=== PATIENT | female | born 1985 | race Caucasian/White ===

== ENCOUNTER 2022-03-02 10:25 | Inpatient (IN) | payer SELFPAY ==
[2022-03-02] VITALS (21 sets, daily range): BP systolic 95–116; BP diastolic 53–74; PULSE 70–86; TEMP 36.4–37.2; O2SAT 98–99; BMI 28.4
[2022-03-02] MEDS: Lactated Ringers 1,000 ML 50 ML IV (11:17)
[2022-03-02 11:21] LABS: Mucous, Urine 0 SEEN /hpf (<or=2+); Red Blood Cells-Urine 0 SEEN /hpf (0-5); White Blood Cells 0 SEEN /hpf (0-5)
[2022-03-02] MEDS: Oxytocin 30 units/NS 500 ml 30 UNITS/500 ML IV.SOLN IV (11:30)
[2022-03-02 11:31] LABS: Absolute Lymphocyte Count 1.55 X10^3/uL (0.83-4.51); Absolute Neutrophil Count 8.1 X10^3/uL (2.0-7.7); Basophil# 0.04 X10^3/uL; Basophil% 0.4 % (0-1); Eosinophil# 0.04 X10^3/uL; Eosinophils% 0.4 % (0-5); Hematocrit 34.2 % (37-47); Hemoglobin 11.8 g/dL (12.0-15.0); Lymphocyte # 1.55 X10^3/ul (0.83-4.51); Mean Corp Hgb Conc 34.5 g/dL (32-36); Mean Corpuscular Hgb 30.4 pg (27.0-32.0); Mean Corpuscular Volume 88.1 fL (81-99); Mean Platelet Vol. 9.3 fl (6.2-12.0); Monocyte# 0.54 X10^3/uL; Monocyte% 5.2 % (0-10); NRBC Flagged by Analyzer 0 % (0-5); Neutrophil # 8.07 X10^3/uL (2.7-7.7); Platelet Count 255 K/mm3 (150-450); RBC Distribution Width SD 41.5 fl (35.1-43.9); Red Blood Count 3.88 M/mm3 (4.2-5.4); White Blood Count 10.3 K/mm3 (4.4-11.0)
[2022-03-02 11:35] LABS: Color, Urine Yellow (Yellow); Glucose, Dipstick Normal (Normal); Ketone-Dipstick Negative (Negative); Leukocyte Esterase-Dipstick Negative /ul (Negative); Nitrite-Dipstick Negative (Negative); Occult Blood-Urine Negative /ul (Negative); Protein-Dipstick Negative (Negative); Urine Bilirubin Dipstick Negative (Negative); Urine Clarity Sl. Cloudy (Clear); Urine Urobilinogen Normal (Normal)
[2022-03-02 11:37] LABS: Amphetamine Urine VISTA NEGATIVE (<1000 ng/mL); Barbiturate Urine VISTA NEGATIVE (< 200 ng/mL); Benzodiazepine Urine VISTA NEGATIVE (< 200 ng/mL); Cocaine Urine VISTA NEGATIVE (< 300 ng/mL); Ecstacy Urine VISTA NEGATIVE (< 500 ng/mL); Methadone Urine VISTA NEGATIVE (< 300 ng/mL); PCP Urine VISTA NEGATIVE (< 25 ng/mL); THC Urine VISTA NEGATIVE (< 50 ng/mL); Vista UDS pH Range 7
[2022-03-02 11:45] LABS: Bacteria 1+ /hpf (None Seen); Squamous Epithelial Cells - UA 0-5 SEEN /hpf (5-10)
[2022-03-02 12:13] LABS: Rubella IgG Reactive (Nonreactive); Syphilis Antibodies Non-reactive
[2022-03-02 12:41] LABS: Group B Strep DNA By PCR Negative (Negative); Internal Control PASS; Probe Check PASS; Specimen Processing Control PASS
[2022-03-02 12:54] LABS: HIV - WCH Non-Reactive (Nonreactive); Hepatitis B Surface Antigen Non-Reactive (Nonreactive); Hepatitis C Antibody Non-Reactive (Nonreactive)
[2022-03-02 13:01] LABS: Chlamydia Trachomatis by PCR Negative (Negative); Neisserai gonorrhoeae by PCR Negative (Negative); Probe Check PASS; Sample Adequacy Control PASS; Specimen Processing Control PASS
--- NOTE | 2022-03-02 17:17 | PCM.HP.OB ---
HPI - General General Date of Admission: 03/02/22 HPI Narrative ADA YELENA, is a 36 y/o @ 39 weeks 4 days gestation who presents to l&d with rupture of membranes without contractions. She is a patient of MsGely Blackburn (branch office administrator) who was transverse last week. She was examined and noted to be vertex, however Amandeep was concerned about possible cord entanglement due to change in position and requested/recommended a hospital . Maternal Data Information STEPHON Calculator Estimated Delivery Date Method Current WG Current Estimate 03/05/22 LMP (Certain) 39w 4d PFSH PFSH Medical History Depression Thyroid disorder Home Medications sertraline [Zoloft] 25 mg PO DAILY 03/02/22 [History Last Taken 03/02/22 07:00] thyroid (pork) [[place] Thyroid] 60 mg PO DAILY 03/02/22 [History Last Taken 03/02/22 07:00] Allergy/AdvReac Type Severity Reaction Status Date / Time No Known Allergies Allergy Unverified 02/15/22 10:25 Family History (Updated 02/15/22 @ 10:27 by Lindsey Granda) Mother Leukemia Sister Lymphoma Social History (Updated 02/15/22 @ 10:27 by Lindsey Granda) Smoking Status: Never smoker alcohol intake: never substance use type: does not use caffeine: No seatbelt use: always do you feel safe at home: Yes additional social history: patient is a [facility] [place] History 6 Elective abortions Hx Para 3 Spontaneous abortions 2 Hx # Term Pregnancies 3 Ectopic pregnancies 0 Hx # Pregnancies 3 Multiple births 0 # of living children 2 Past Pregnancies Del. Date Name GA/Weeks Outcome Route Bth Weight Gen Labor Lgth Anesthesia Del Locatn Provider FOB Unknown 2011 Alessandro 39 live - full term 8lbs 3oz Male 8 none home tyler sanz Unknown 2013 Samson 40 live - full term 9lbs 6oz Male 13.5 none home amandeep sanz Unknown 2015 Tonya 40 live - full term 8lbs Female 3 none Home Amandeep Sanz Delivery Date: no complications to note Lindsey Granda Delivery Date: no complications to note Lindsey Granda Delivery Date: No complications to note Lindsey Granda Visit Details Expected Delivery Route/Plan home planned with Amandeep Blackburn OB Flowsheet Initial Weight: Not Recorded Date <del>?</del> EGA Weight BP Urine Prot <del>?</del> Glucose FHR FuHt Pres Dilation <del>?</del> Effaced St Visit Note 02/15/22 <del>?</del> 37w 3d 154 lb <del>?</del> 145 <del>?</del> Limited bedside ultrasound performed and fetus confirmed to be vertex but high in pelvis with fluid underneath. Some cord seen to the side but no clear nuchal cord evaluated. Unrestricted reassuring movement seen. Grossly normal amniotic fluid level. Fundal height measurements consistent with dating. 03/02/22 <del>?</del> 39w 4d 160 lb 9.6 oz 104/68 104/68 113/74 113/59 108/65 116/69 108/63 109/60 108/59 Negative mg/dl (Negative) <del>?</del> <del>?</del> ROS Constitutional Constitutional: Denies change in weight, fatigue, fever(s), headache(s), poor appetite or weakness Eyes Eyes: Denies blurry vision, change in vision, seeing flashes or spots in vision ENT HEENT: Denies dizziness, headache(s), loss taste/smell or sore throat Cardiovascular Cardiovascular: Denies chest pain, dizziness, dyspnea, irregular heart rhythm, leg edema, palpitations, rapid heart rate or vomiting Respiratory/Chest Respiratory/Chest: Denies chest tightness, cough, dyspnea or breast pain Gastrointestinal Gastrointestinal: Denies abdominal pain, anorexia, constipation, cramping, diarrhea, hemorrhoids, vomiting or weight changes Genitourinary Genitourinary: Denies dysuria, flank pain, genital lesions, genital pain, urinary frequency or urinary urgency Musculoskeletal Musculoskeletal: Denies back pain, difficulty walking, joint pain, limited range of motion, muscle cramps or numbness Integumentary Integumentary: Denies lesions or unusual bruising Neurologic Neurologic: Denies abnormal movements, abnormal speech, dizziness, numbness, seizure-like activity or syncope Psychiatric Psychiatric: Denies anxiety, behavioral changes, change in appetite, change in libido, cognitive impairment, confusion, depression, difficulty concentrating, hallucinations or suicidal thoughts Endocrine Endocrinology: Denies excessive sweating, polydipsia or polyuria Hematologic/Lymphatic Hematologic/Lymphatic: Denies easy bleeding, easy bruising or lymphadenopathy Allergic/Immunologic Allergic/Immunologic: Denies itchy eyes, lip swelling, seasonal rhinorrhea, rhinitis, throat swelling, tongue swelling, eczemia, wheezing or asthma Vital Signs Vital Signs Vital Signs: 03/02/22 10:45 03/02/22 10:51 03/02/22 11:33 Temperature 98.6 F 97.6 F L Temperature Source Temporal Temporal Pulse Rate 80 80 74 Blood Pressure 104/68 104/68 113/74 BP Systolic 104 104 113 BP Diastolic 68 68 74 Pulse Ox 99 03/02/22 12:26 03/02/22 13:35 03/02/22 13:36 Temperature 98.2 F 97.8 F Temperature Source Temporal Temporal Pulse Rate 79 74 Blood Pressure 113/59 L 108/65 BP Systolic 113 108 BP Diastolic 59 65 Pulse Ox 99 98 98 03/02/22 14:34 03/02/22 15:22 03/02/22 16:23 Temperature 98.9 F 98.0 F 98.1 F Temperature Source Temporal Temporal Pulse Rate 73 75 86 Blood Pressure 116/69 108/63 109/60 BP Systolic 116 108 109 BP Diastolic 69 63 60 Pulse Ox Weight Weight: 160 lb 9.6 oz Body Mass Index (BMI) 28.4 Physical Exam Const alert, oriented x3, no apparent distress and healthy appearing General Appearance: cooperative; Negative for anxious HEENT normocephalic Face and Sinus: normal facial exam Eyes EOMs intact bilaterally and no scleral icterus General Eye: normal appearance of both eyes Neck full ROM and supple Lymph Lymphatic: no lymphadenopathy noted Chest Chest: abnormal inspection of the chest Resp normal respiratory effort Effort and Inspection: able to speak in complete sentences Cardio regular rate GI soft to palpation and non-tender Inspection: gravid Palpation: soft; Negative for tender external exam normal Amniotic Fluid: ROM+plus Back/Spine no CVA tenderness Extremity normal to inspection, full ROM and no clubbing, cyanosis or edema General Extremity: Negative for calf tenderness or edema Skin Lesions: no lesions Rashes: no rashes Psych mental status grossly normal Labs Labs Labs: Blood Type A NEGATIVE Antibody Screen NEGATIVE Hct 34.2 % (37-47) L Hgb 11.8 g/dL (12.0-15.0) L Syphilis Total Ab Non-reactive Rubella IgG Antibody Reactive (Nonreactive) Hep Bs Antigen Non-Reactive (Nonreactive) HIV 1&2 Antibody Non-Reactive (Nonreactive) Group B Strep DNA Negative (Negative) Assessment & Plan (1) Premature rupture of membranes (PROM) affecting sixth : PLAN: Patient presents IOL, plan management for with pitocin/AROM. Pain management: none requested. GBS negative. Management of any complications: none I have reviewed the [facility] and made any clinically relevant updates.
[2022-03-02] MEDS: Oxytocin 30 units/NS 500 ml 30 UNITS/500 ML IV.SOLN 334 UNITS IV (18:44)
--- NOTE | 2022-03-02 20:20 | HP.PCM.NUR_ITS ---
Subjective Subjective: 3485gramds for this 39.4week AGA Bg born via VD after sent in by core laying machine operator Lisandra Blackburn secondary to concern for cord entanglement and need for pitocin. 36yo ->4 Aneg ( baby A+/C-), HepBsag neg, RI, RPR NR, GBS neg, HIV NR, UDS neg. Labs drawn upon admission. Maternal history of hypothyroidism on [place] thyroid and zoloft. Parents have a 9yo,7yo, 5yo, and MOB breastfed all three and none of them had jaundice in the period. Baby has breastfed well thus far. PCP: Objective Objective Data: 03/02/22 10:45 03/02/22 10:51 03/02/22 11:33 Temperature 98.6 F 97.6 F L Temperature Source Temporal Temporal Pulse Rate 80 80 74 Blood Pressure 104/68 104/68 113/74 BP Systolic 104 104 113 BP Diastolic 68 68 74 Pulse Ox 99 03/02/22 12:26 03/02/22 13:35 03/02/22 13:36 Temperature 98.2 F 97.8 F Temperature Source Temporal Temporal Pulse Rate 79 74 Blood Pressure 113/59 L 108/65 BP Systolic 113 108 BP Diastolic 59 65 Pulse Ox 99 98 98 03/02/22 14:34 03/02/22 15:22 03/02/22 16:23 Temperature 98.9 F 98.0 F 98.1 F Temperature Source Temporal Temporal Pulse Rate 73 75 86 Blood Pressure 116/69 108/63 109/60 BP Systolic 116 108 109 BP Diastolic 69 63 60 Pulse Ox 03/02/22 17:16 03/02/22 18:03 03/02/22 18:47 Temperature 98.4 F Temperature Source Temporal Pulse Rate 86 83 86 Blood Pressure 108/59 L 97/56 L BP Systolic 108 97 BP Diastolic 59 56 Pulse Ox 03/02/22 19:02 03/02/22 19:17 03/02/22 19:31 Temperature 98.0 F 98.1 F Temperature Source Temporal Temporal Pulse Rate 81 72 Blood Pressure 113/59 L 95/59 L BP Systolic 113 95 BP Diastolic 59 59 Pulse Ox 03/02/22 19:32 03/02/22 19:47 03/02/22 20:02 Temperature Temperature Source Pulse Rate 80 83 70 Blood Pressure 104/66 111/69 103/64 BP Systolic 104 111 103 BP Diastolic 66 69 64 Pulse Ox Weight: 72.847 kg Vital Signs Temp Pulse BP Pulse Ox 03/02/22 20:02 70 103/64 03/02/22 19:47 83 111/69 03/02/22 19:32 80 104/66 03/02/22 19:31 98.1 F 03/02/22 19:17 72 95/59 L 03/02/22 19:02 98.0 F 81 113/59 L 03/02/22 18:47 86 03/02/22 18:03 83 97/56 L 03/02/22 17:16 98.4 F 86 108/59 L 03/02/22 16:23 98.1 F 86 109/60 03/02/22 15:22 98.0 F 75 108/63 03/02/22 14:34 98.9 F 73 116/69 03/02/22 13:36 74 108/65 98 03/02/22 13:35 97.8 F 98 03/02/22 12:26 98.2 F 79 113/59 L 99 03/02/22 11:33 97.6 F L 74 113/74 03/02/22 10:51 80 104/68 03/02/22 10:45 98.6 F 80 104/68 99 Lab tests last 48H 03/02/22 03/02/22 03/02/22 11:00 11:00 11:00 WBC 10.3 RBC 3.88 L Hgb 11.8 L Hct 34.2 L MCV 88.1 MCH 30.4 MCHC 34.5 RDW Std Deviation 41.5 RDW Coeff of Levi 13.0 Plt Count 255 MPV 9.3 Immature Gran % (Auto) 1.000 H Neut % (Auto) 78.0 H Lymph % (Auto) 15.0 L [place] % (Auto) 5.2 Eos % (Auto) 0.4 Baso % (Auto) 0.4 Absolute Neuts (auto) 8.1 H Absolute Lymphs (auto) 1.55 Nucleated RBC % 0 Urine Color Yellow Urine Clarity Sl. Cloudy Urine pH 8.0 Ur Specific [place] 1.010 Urine Protein Negative Urine Glucose (UA) Normal Urine Ketones Negative Urine Occult Blood Negative Urine Nitrite Negative Urine Bilirubin Negative Urine Urobilinogen Normal Ur Leukocyte Esterase Negative Urine RBC 0 SEEN Urine WBC 0 SEEN Ur Squamous Epith Cells 0-5 SEEN Urine Bacteria 1+ Urine Mucus 0 SEEN Urine Opiates Screen Urine Methadone Screen Ur Barbiturates Screen Ur Phencyclidine Scrn Ur Amphetamines Screen MDMA (Ecstasy) Screen U Benzodiazepines Scrn Urine Cocaine Screen U Cannabinoids Screen Ur Drug Screen Comment Syphilis Total Ab Non-reactive Chlam trachomat DNA PCR Hep Bs Antigen Hepatitis C Antibody HIV 1&2 Antibody N.gonorrhoeae DNA (PCR) Rubella IgG Antibody Reactive Group B Strep DNA Specimen Comment Blood Type Antibody Screen 03/02/22 03/02/22 03/02/22 11:00 11:00 11:00 WBC RBC Hgb Hct MCV MCH MCHC RDW Std Deviation RDW Coeff of Levi Plt Count MPV Immature Gran % (Auto) Neut % (Auto) Lymph % (Auto) [place] % (Auto) Eos % (Auto) Baso % (Auto) Absolute Neuts (auto) Absolute Lymphs (auto) Nucleated RBC % Urine Color Urine Clarity Urine pH Ur Specific [place] Urine Protein Urine Glucose (UA) Urine Ketones Urine Occult Blood Urine Nitrite Urine Bilirubin Urine Urobilinogen Ur Leukocyte Esterase Urine RBC Urine WBC Ur Squamous Epith Cells Urine Bacteria Urine Mucus Urine Opiates Screen NEGATIVE Urine Methadone Screen NEGATIVE Ur Barbiturates Screen NEGATIVE Ur Phencyclidine Scrn NEGATIVE Ur Amphetamines Screen NEGATIVE MDMA (Ecstasy) Screen NEGATIVE U Benzodiazepines Scrn NEGATIVE Urine Cocaine Screen NEGATIVE U Cannabinoids Screen NEGATIVE Ur Drug Screen Comment Syphilis Total Ab Chlam trachomat DNA PCR Hep Bs Antigen Hepatitis C Antibody HIV 1&2 Antibody N.gonorrhoeae DNA (PCR) Rubella IgG Antibody Group B Strep DNA Negative Specimen Comment Not Reportable Blood Type A NEGATIVE Antibody Screen NEGATIVE 03/02/22 03/02/22 11:00 11:00 WBC RBC Hgb Hct MCV MCH MCHC RDW Std Deviation RDW Coeff of Levi Plt Count MPV Immature Gran % (Auto) Neut % (Auto) Lymph % (Auto) [place] % (Auto) Eos % (Auto) Baso % (Auto) Absolute Neuts (auto) Absolute Lymphs (auto) Nucleated RBC % Urine Color Urine Clarity Urine pH Ur Specific [place] Urine Protein Urine Glucose (UA) Urine Ketones Urine Occult Blood Urine Nitrite Urine Bilirubin Urine Urobilinogen Ur Leukocyte Esterase Urine RBC Urine WBC Ur Squamous Epith Cells Urine Bacteria Urine Mucus Urine Opiates Screen Urine Methadone Screen Ur Barbiturates Screen Ur Phencyclidine Scrn Ur Amphetamines Screen MDMA (Ecstasy) Screen U Benzodiazepines Scrn Urine Cocaine Screen U Cannabinoids Screen Ur Drug Screen Comment Syphilis Total Ab Chlam trachomat DNA PCR Negative Hep Bs Antigen Non-Reactive Hepatitis C Antibody Non-Reactive HIV 1&2 Antibody Non-Reactive N.gonorrhoeae DNA (PCR) Negative Rubella IgG Antibody Group B Strep DNA Specimen Comment Blood Type Antibody Screen Micro - Preliminary and Final Results 03/02/22 11:00 SARS-CoV-2 Antigen (Rapid) - Final Nasal Secretion Vital Signs Vital Signs Vital Signs: 03/02/22 10:45 03/02/22 10:51 03/02/22 11:33 Temperature 98.6 F 97.6 F L Temperature Source Temporal Temporal Pulse Rate 80 80 74 Blood Pressure 104/68 104/68 113/74 BP Systolic 104 104 113 BP Diastolic 68 68 74 Pulse Ox 99 03/02/22 12:26 03/02/22 13:35 03/02/22 13:36 Temperature 98.2 F 97.8 F Temperature Source Temporal Temporal Pulse Rate 79 74 Blood Pressure 113/59 L 108/65 BP Systolic 113 108 BP Diastolic 59 65 Pulse Ox 99 98 98 03/02/22 14:34 03/02/22 15:22 03/02/22 16:23 Temperature 98.9 F 98.0 F 98.1 F Temperature Source Temporal Temporal Pulse Rate 73 75 86 Blood Pressure 116/69 108/63 109/60 BP Systolic 116 108 109 BP Diastolic 69 63 60 Pulse Ox 03/02/22 17:16 03/02/22 18:03 03/02/22 18:47 Temperature 98.4 F Temperature Source Temporal Pulse Rate 86 83 86 Blood Pressure 108/59 L 97/56 L BP Systolic 108 97 BP Diastolic 59 56 Pulse Ox 03/02/22 19:02 03/02/22 19:17 03/02/22 19:31 Temperature 98.0 F 98.1 F Temperature Source Temporal Temporal Pulse Rate 81 72 Blood Pressure 113/59 L 95/59 L BP Systolic 113 95 BP Diastolic 59 59 Pulse Ox 03/02/22 19:32 03/02/22 19:47 03/02/22 20:02 Temperature Temperature Source Pulse Rate 80 83 70 Blood Pressure 104/66 111/69 103/64 BP Systolic 104 111 103 BP Diastolic 66 69 64 Pulse Ox Weight Weight: 72.847 kg Body Mass Index (BMI) 28.4 General Weight: 72.847 kg
--- NOTE | 2022-03-02 22:15 | OP.PCM_ITS ---
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 The head was delivered atraumatically. The anterior and posterior shoulders delivered without complication followed by the rest of the infant and the infant was placed on the maternal abdomen. Delayed cord clamping was employed for approximately 60 seconds. Cord was clamped and cut and gentle traction was applied to the cord and the placenta delivered spontaneously immediately following it was noted to be intact with three-vessel cord. The pe rineum and vagina were inspected and noted to have no laceration. EBL was 100 cc. Patient and infant tolerated delivery well. Presentation: Vertex Amniotic Membrane Rupture Type: Spontaneous Amniotic Fluid Description: Clear Placenta Disposition: [facility] Cord Vessel Description: 3 Vessels Cord Entanglement: None A Gender: Female (1 minute): 8 (5 minute): 9 Delayed Cord Clamping: Yes Multi Select Codes Urinary/Genital Urinary/Genital CPT Codes: 98783 Vaginal Delivery+ PP Care([facility])
--- NOTE | 2022-03-02 22:17 | PCM.DC ---
Discharge Instructions Diet Discharge Diet: No restrictions Activity Discharge Activity: Return to Normal Activity, May Not Drive (while taking narcotic pain medications.) and May Shower May resume sexual activity in: 4-6 weeks Dressing / Incision Call your doctor if your incision/area has: Continuous Slow Oozing, Sudden Increased Bleeding, Increased Pain/ Swelling, Increased Redness and Foul Smelling Discharge Follow Up Care Please Follow Up With: Merari Edmonds, When: Call [phone] to make an appointment with your doctor in 6 weeks. If you had elevated blood pressure or 4th degree laceration, you will need to be seen in 2 weeks. Test Results: Test results from this visit will be discussed in further detail at your follow-up appointment, if applicable. Discharge Plan Admission Admit Date/Time: 03/02/22 10:25 Primary Reason for Your Visit: vaginal delivery Attending Provider: Merari Edmonds Discharge Orders/Prescriptions Prescriptions: No Action sertraline [Zoloft] 25 mg Tablet 25 mg PO DAILY RF: 0 thyroid (pork) [[place] Thyroid] 60 mg Tablet 60 mg PO DAILY RF: 0 Disposition Disposition (needs filled in before D/C Order can be placed): Home, Self Care
[2022-03-03] VITALS (11 sets, daily range): BP systolic 88–108; BP diastolic 52–73; PULSE 67–94; RESP 15–18; TEMP 36.4–37.1; O2SAT 85–97
--- NOTE | 2022-03-03 08:34 | PN.OBGYN_ITS ---
Subjective Subjective Patient doing well without complaints. Tolerating PO. Ambulating and voiding without difficulty. Feeding well. Denies chest pain, shortness of breath, calf pain/swelling, fevers, chills, lightheadedness. Objective Data Objective Data Vital Signs: Vital Signs Temp Pulse Resp BP Pulse Ox 97.5 F L 86 16 107/73 97 03/03/22 07:30 03/03/22 07:30 03/03/22 07:30 03/03/22 07:30 03/03/22 07:30 Oxygen Delivery Method Room Air Weight: 160 lb 9.6 oz Body Mass Index (BMI) 28.4 Intake & Output: Intake and Output for Last 24 Hours 03/01/22 03/02/22 03/03/22 23:59 23:59 23:59 Intake Total 909.07 / 909.07 Output Total 1900 / 1900 800 / 800 Balance -990.93 / -990.93 -800 / -800 Lab / Micro Data Result Diagrams: 03/02/22 11:00 Labs: Laboratory Results - last 24 hr 03/02/22 11:00: WBC 10.3, RBC 3.88 L, Hgb 11.8 L, Hct 34.2 L, MCV 88.1, MCH 30.4, MCHC 34.5, RDW Std Deviation 41.5, RDW Coeff of Levi 13.0, Plt Count 255, MPV 9.3, Immature Gran % (Auto) 1.000 H, Neut % (Auto) 78.0 H, Lymph % (Auto) 15.0 L, [place] % (Auto) 5.2, Eos % (Auto) 0.4, Baso % (Auto) 0.4, Absolute Neuts (auto) 8.1 H, Absolute Lymphs (auto) 1.55, Nucleated RBC % 0 03/02/22 11:00: Urine Color Yellow, Urine Clarity Sl. Cloudy, Urine pH 8.0, Ur Specific [place] 1.010, Urine Protein Negative, Urine Glucose (UA) Normal, Urine Ketones Negative, Urine Occult Blood Negative, Urine Nitrite Negative, Urine Bilirubin Negative, Urine Urobilinogen Normal, Ur Leukocyte Esterase Negative, Urine RBC 0 SEEN, Urine WBC 0 SEEN, Ur Squamous Epith Cells 0-5 SEEN, Urine Bacteria 1+, Urine Mucus 0 SEEN 03/02/22 11:00: Syphilis Total Ab Non-reactive, Rubella IgG Antibody Reactive 03/02/22 11:00: Group B Strep DNA Negative, Specimen Comment Not Reportable 03/02/22 11:00: Blood Type A NEGATIVE, Antibody Screen NEGATIVE 03/02/22 11:00: Urine Opiates Screen NEGATIVE, Urine Methadone Screen NEGATIVE, Ur Barbiturates Screen NEGATIVE, Ur Phencyclidine Scrn NEGATIVE, Ur Amphetamines Screen NEGATIVE, MDMA (Ecstasy) Screen NEGATIVE, U Benzodiazepines Scrn NEGATIVE, Urine Cocaine Screen NEGATIVE, U Cannabinoids Screen NEGATIVE, Ur Drug Screen Comment 03/02/22 11:00: Hep Bs Antigen Non-Reactive, Hepatitis C Antibody Non-Reactive, HIV 1&2 Antibody Non-Reactive 03/02/22 11:00: Chlam trachomat DNA PCR Negative, N.gonorrhoeae DNA (PCR) Negative 03/03/22 04:20: Screen NEGATIVE, Baby's Blood Type A POSITIVE, Baby's HARI NEGATIVE Micro: Microbiology 03/02/22 11:00 Nasal Secretion SARS-CoV-2 Antigen (Rapid) - Final ROS Constitutional Constitutional: Denies chills, fatigue, fever(s), poor appetite or weakness Eyes Eyes: Denies blurry vision, change in vision, seeing flashes or spots in vision ENT HEENT: Denies dizziness, headache(s), loss taste/smell or sore throat Cardiovascular Cardiovascular: Denies chest pain, dizziness, dyspnea, irregular heart rhythm, palpitations or rapid heart rate Respiratory/Chest Respiratory/Chest: Denies chest tightness, cough, dyspnea or breast pain Gastrointestinal Gastrointestinal: Denies abdominal pain, constipation or vomiting Genitourinary Genitourinary: Denies dysuria or flank pain Musculoskeletal Musculoskeletal: Denies difficulty walking, joint pain, limited range of motion or numbness Neurologic Neurologic: Denies abnormal movements, abnormal speech, dizziness, numbness, seizure-like activity or syncope Psychiatric Psychiatric: Denies anxiety, behavioral changes, change in appetite, confusion, depression or suicidal thoughts Physical Exam Const alert, oriented x3 and no apparent distress General Appearance: cooperative and comfortable Resp normal respiratory effort Cardio regular rate GI normal to inspection, nondistended, normoactive bowel sounds GI Narrative: uterus is firm below umbilicus Palpation: soft Bimanual Exam - Adnexa, Other: Negative for cul-de-sac fullness Back/Spine no CVA tenderness and thoraco-lumbar ROM normal Extremity normal to inspection, no clubbing, cyanosis or edema, no calf tenderness and no pedal edema Psych mental status grossly normal, thought process normal, cooperative, affect normal, speech normal, activity/motor behavior normal, denies homicidal ideation and denies suicidal ideation Assessment & Plan (1) Premature rupture of membranes (PROM) affecting sixth : (2) : COMMENT: Patient planning home with Lisandra Blackburn, seen for confirmation of vertex presentation PLAN: s/p PPD # 1 1. routine post delivery care 2. breast feeding- support given 3. rh positive 4. rubella immune 5. dc to home tonight
[2022-03-03] MEDS: Sertraline 50 MG Tablet 25 MG PO (08:41)
[2022-03-04 07:38] VITALS: BP 180/83; PULSE 106
[2022-03-04 07:41] VITALS: BP 141/61; PULSE 102
== END 2022-03-03 19:30 | disposition home or self-care (01) | DRG 807 ==
PROVIDERS: Admitting Provider Obstetrics & Gynecology; Visit Provider Obstetrics & Gynecology
DX: O42.92 Full-term premature rupture of membranes, unspecified as to length of time between rupture and onset of labor (principal); Z37.0 Single live birth; O26.23 Pregnancy care for patient with recurrent pregnancy loss, third trimester; E07.9 Disorder of thyroid, unspecified; O99.344 Other mental disorders complicating childbirth; F32.A Depression, unspecified; Z3A.39 39 weeks gestation of pregnancy; O99.284 Endocrine, nutritional and metabolic diseases complicating childbirth; Z79.899 Other long term (current) drug therapy
CPT/HCPCS: 59025; 59050; 80307; 81001; 85025; 85461; 86703; 86762; 86780; 86803; 86850; 86900; 86901; 87081; 87340; 87426; 87491; 87591; 87653; 90384; 99218; J7120; G0378; J2790